=== PATIENT | female | born 1990 | race American Indian/Alaskan Native ===

== ENCOUNTER 2022-09-14 14:21 | Inpatient (IN) ==
[2022-09-14] MEDS ORDERED: OXYTOCIN 30 UNITS/500 ML BAG IV PRN ×2 (14:27→18:35)
[2022-09-14] MEDS ORDERED: LIDOCAINE 1% LOCAL 20 ML VIAL INFIL PRN (14:27)
--- NOTE | 2022-09-14 14:39 | History & Physical Report ---
Date of Service September 14, 2022 Assessment & Plan (1) Rupture of membranes with clear amniotic fluid: Plan: 32 y/o female presents from clinic after confirmed ROM. GBS neg, RI. Rh neg - given rhogam at 28 weeks. Expect normal vaginal delivery. Epidural if/when desired. Pit when indicated. Typical labor care. c/b hypothyroidism on levothyroxine 112 mcg Admission and Anticipated Discharge Date Admission Date: September 14, 2022 History of Present Illness Chief Complaint: ROM Primary Care Provider: Enedina Ignacio DO 32 y/o female at 37+6 presents from clinic after confirmed ROM. 1-2/50/-2 in office. GBS neg, RI. Rh neg - given rhogam at 28 weeks. Ob Hx - 1 spontaneous Chief [employer] Hx Last pap 12/23/21 NIL Had abnormal pap in 2019 - HPV SUNITA 1, Allergies Allergy/AdvReac Type Severity Reaction Status Date / Time human papillomavirus AdvReac fever and Verified 09/14/22 13:35 vaccine, 9-valent syncope [From Gardasil 9 (PF)] Home Medications Medication Instructions Recorded Confirmed Type prenat.vits,jeramy,[id number] 1 tab PO DAILY 12/23/21 09/14/22 History levothyroxine 112 mcg tablet 112 mcg PO DAILY 05/19/22 09/14/22 History breast pump #1 ea 09/08/22 09/14/22 Rx Patient History Medical History (Updated 09/14/22 @ 14:37 by Sandy Ward MD) Abnormal Pap smear of cervix Anxiety and depression Hypothyroidism LGSIL on Pap smear of cervix Oral contraceptive prescribed Varicella vaccination Surgical History History of tonsillectomy and adenoidectomy Family History Grandmother (Paternal) Metastatic cancer to brain Mother Healthy adult Father Tachy-tanna syndrome Diabetes Denies family history of Ovarian cancer Breast cancer Colorectal cancer Social History (Updated 02/20/22 @ 10:00 by Evy Matias) Smoking Status: Never smoker marital status: Single marital status details: srikanthsaba Bethel Timmons (30) [phone] Current Living Situation: Significant Other Current Living Situation Comment: lives with Fob, 2 step children, dog, cat-fob changing litter current occupational status: employed 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
[2022-09-14 14:55] LABS: Hematocrit (blood only) 37.6 % (37.0-47.0); Hemoglobin 12.8 g/dl (12.0-16.0); Mean Platelet Volume 10.9 fL (9.4-12.4); Platelet Count 271 K/uL (130-400); RDW Coefficient of Variation 12.9 % (11.5-14.5); RDW Standard Deviation 42.5 fL (36.4-46.3); Red Blood Count 4.13 M/uL (4.20-5.40); White Blood Count 10.36 K/ul (4.8-10.8)
[2022-09-14] MEDS: LACTATED RINGER'S 1,000 ML IV PRN ×2 (18:37→23:24)
[2022-09-14] MEDS ORDERED: ePHEDrine sulfate 50 MG/ML AMP ONE (23:10)
[2022-09-14] MEDS ORDERED: LIDOCAINE 2%/EPINEPHRINE 1:200,000 20 ML SDV ONE (23:10)
[2022-09-14] MEDS ORDERED: SODIUM CHLORIDE 0.9% INJ 10 ML VIAL ONE (23:10)
[2022-09-14] MEDS ORDERED: BUPIVACAINE 0.25% 30 ML VIAL ONE (23:10)
[2022-09-14] MEDS ORDERED: fentaNYL citrate 100 MCG/2 ML VIAL ONE (23:10)
[2022-09-14] MEDS ORDERED: fentaNYL 2MCG/ML ROPIVACAINE 1.25MG/ML 100 ML BAG EPI ONE (23:11)
--- NOTE | 2022-09-14 23:20 | Anesthesiology Consultation ---
Date of Service September 14, 2022 Assessment & Plan Chart Review Chart Review: Acceptable Risk for Labor Epidural Consults Requested none ASA ASA2 Proposed Anesthesia Anesthesia Type: Labor Epidural Risk / Benefits Reviewed With: PT / POA / Parent / Guardian, Accepts Plan and Informed Consent Obtained History Height/Weight Height: 5 ft 1 in Weight: 87.22 kg Allergies Allergy/AdvReac Type Severity Reaction Status Date / Time human papillomavirus AdvReac fever and Verified 09/14/22 13:35 vaccine, 9-valent syncope [From Gardasil 9 (PF)] Medications Home Medications Medication Instructions Recorded Confirmed Last Taken prenat.vits,jeramy,[id number] 1 tab PO DAILY 12/23/21 09/14/22 Unknown levothyroxine 112 mcg tablet 112 mcg PO DAILY 05/19/22 09/14/22 Unknown breast pump #1 ea 09/08/22 09/14/22 Unknown Active Medications Generic Name Dose Route Start Last Admin Trade Name Freq PRN Reason Stop Dose Admin Lactated Ringer's 1,000 mls @ 125 mls/hr 09/14/22 14:27 09/14/22 23:01 Lr IV 09/16/22 14:26 999 mls/hr .Q8H PRN Infusion L&D Protocol Protocol Oxytocin 30 units in 500 mls @ 9 mls/hr 09/14/22 18:35 09/14/22 23:01 Pitocin IV 09/16/22 18:34 0.54 units/hr .Q24H PRN 9 mls/hr Labor Induction/Augmentation Titration Protocol 0.54 UNITS/HR Past Medical History Medical History Abnormal Pap smear of cervix Anxiety and depression Hypothyroidism LGSIL on Pap smear of cervix Oral contraceptive prescribed Varicella vaccination Exercise / Class Metabolic Activity II 4-5 Yardwork/Stairs/Walk up hill Past Family History Family History Grandmother (Paternal) Metastatic cancer to brain Mother Healthy adult Father Tachy-tanna syndrome Diabetes Denies family history of Ovarian cancer Breast cancer Colorectal cancer Past Surgical History Surgical History History of tonsillectomy and adenoidectomy Past Anesthesia History No Hx of Anesthesia Complications and No Family Hx of Anesthesia Complications History of PONV No Hx of PONV and No Hx of Motion Sickness Social History Smoking Status: Never smoker Hx Alcohol Use: No Hx Substance Use: No Physical Exam Vital Signs Last Vital Signs Temp 98.4 F 09/14/22 23:01 Pulse 98 H 09/14/22 23:17 Resp 18 09/14/22 23:01 BP 121/56 L 09/14/22 23:00 Pulse Ox 97 09/14/22 23:17 ENMT Mouth: no dentition abnormality Thyromental Distance: > or= 3.5 Finger Breadths Mallampati Class: II Neck normal visual inspection Respiratory normal respiratory effort Auscultation: lungs clear to auscultation bilaterally Cardiovascular Rate/Rhythm: regular rate and regular rhythm Testing Laboratory Results 09/14/22 14:35 Blood Type A Negative 09/14/22 14:35 Antibody Screen POSITIVE A 09/14/22 14:35
[2022-09-14] MEDS ORDERED: NALOXONE HCL 0.4 MG/1 ML VIAL/CARP IV PRN (23:38)
[2022-09-14] MEDS ORDERED: ePHEDrine sulfate 50 MG/ML AMP IV PRN (23:38)
[2022-09-14] MEDS ORDERED: diphenhydrAMINE 50 MG/ML VIAL IV PRN (23:38)
[2022-09-14] MEDS ORDERED: ONDANSETRON INJ 2 MG/ML 2 ML VIAL IV PRN (23:38)
[2022-09-14] MEDS ORDERED: fentaNYL 2MCG/ML ROPIVACAINE 1.25MG/ML 100 ML BAG EPI PRN (23:38)
[2022-09-14] MEDS ORDERED: NALOXONE HCL 1 MG in SODIUM CHLORIDE 0.9% 1000ML 1,000 ML IV PRN (23:38)
[2022-09-14] MEDS ORDERED: NALBUPHINE HCL INJ 10 MG/ML AMP IV PRN (23:38)
[2022-09-15] MEDS ORDERED: Nursing to Pharmacy Communication SCH (01:30)
[2022-09-15] MEDS: LACTATED RINGER'S 1,000 ML IV PRN (02:12)
--- NOTE | 2022-09-15 02:38 | Delivery Summary ---
Vaginal Delivery Summary Date of Service September 15, 2022 Vaginal Delivery Summary Patient had been sent over from the office with spontaneous rupture of membrane she was 1 cm 50% she initially chose to walk and preferred not to have augmentation but after several hours there were minimal contractions so she excepted Pitocin this was run and she then requested epidural she reached fully dilated pushing a baby over occiput anterior position first delivery of the head mouth and then nares suctioned no nuchal cord fluid was clear gentle traction no excessive force baby was delivered without difficulty live vigorous male cord clamped and cut placenta removed with gentle traction IV Pitocin started uterine tone improved second-degree tear repaired with 3-0 Vicryl sponge and instrument counts correct estimated blood loss 300 mL
[2022-09-15] MEDS ORDERED: DIPHTHERIA/TETANUS/PERTUSSIS 0.5mL SYR/VIAL (Age 7+yrs) IM ONE (03:02)
[2022-09-15] MEDS ORDERED: oxyCODONE/ACETAMINOPHEN 5mg/325mg TAB PO PRN (03:02)
[2022-09-15] MEDS ORDERED: BENZOCAINE 20% AER SPR 82.5 GM CAN EXT PRN (03:02)
[2022-09-15] MEDS ORDERED: ACETAMINOPHEN 325 MG TAB PO PRN (03:02)
[2022-09-15] MEDS ORDERED: OXYTOCIN 30 UNITS/500 ML BAG IV PRN (03:02)
[2022-09-15] MEDS ORDERED: HYDROCORTISONE ACETATE 25 MG SUPP PR PRN (03:02)
[2022-09-15] MEDS: IBUPROFEN 600 MG TAB PO PRN ×3 (04:03→20:46)
[2022-09-15] MEDS: LEVOTHYROXINE SODIUM 112 MCG TABLET PO SCH (06:31)
[2022-09-15] MEDS: PRENATAL VITAMIN 1 TAB PO SCH (08:24)
[2022-09-15] MEDS: DOCUSATE SODIUM 100 MG CAP PO SCH ×2 (08:24→20:46)
--- NOTE | 2022-09-15 08:56 | Anesthesia Procedure Note ---
Date of Service September 15, 2022 Anesthesia Post Epidural Note Vital Signs Vital Signs: Temp Pulse Resp BP Pulse Ox O2 Del Method 36.8 C 85 18 101/62 97 Room Air 09/15/22 05:00 09/15/22 05:00 09/15/22 05:00 09/15/22 05:00 09/15/22 05:00 09/15/22 05:00 Pain Intensity Bilateral Abdomen: Pain Intensity: 2 Bilateral Episiotomy/Laceration: Pain Intensity: 2 Notes Mental Status: alert / awake / arousable and participated in evaluation Nausea / Vomiting: adequately controlled Pain: adequately controlled Airway Patency, RR, SpO2: stable & adequate BP & HR: stable & adequate Hydration State: stable & adequate Neuraxial Anesthesia: was administered and sensory block resolved Anesthetic Complications: no major complications apparent and Pt Satisfied with anesthetic care Epidural: Removed without complications and With tip intact
[2022-09-16] MEDS: LEVOTHYROXINE SODIUM 112 MCG TABLET PO SCH (06:23)
--- NOTE | 2022-09-16 07:41 | Obstetrical Progress Note ---
Date of Service September 16, 2022 Assessment & Plan (1) Encounter for care and examination after delivery: Day 1 status post . Patient doing well. Routine care. Subjective Ambulation: ambulating normally Voiding: no voiding problems Passing Gas:: Yes Diet Tolerance:: regular diet Lochia:: Moderate Feeding Type:: breast feeding Physical Exam Constitutional WD/WN, vitals as above Respiratory normal respiratory effort; no respiratory distress and no labored breathing Gastrointestinal (Abdomen) Inspection/Auscultation: abdomen normal to inspection; abdomen not distended Percussion/Palpation: abdomen soft; abdomen nontender, no guarding and abdomen not rigid Genitourinary OB Exam Abdomen: + fundal height Fundus: + firm and + relation to umbilicus (Below); not tender or not boggy Results & Data ([facility]) Vital Signs (Past 12 Hours) Vital Signs Temp Pulse Resp BP 09/15/22 20:40 37.0 C 103 H 18 111/70
[2022-09-16 07:50] LABS: Hemoglobin 10.7 g/dl (12.0-16.0); Mean Corpuscular Hemoglobin 30.7 pg (25.0-34.0); Mean Corpuscular Hgb Conc 33.4 g/dL (32.0-36.0); Platelet Count 217 K/uL (130-400); RDW Coefficient of Variation 13.2 % (11.5-14.5); RDW Standard Deviation 43.7 fL (36.4-46.3); Red Blood Count 3.48 M/uL (4.20-5.40); White Blood Count 10.93 K/ul (4.8-10.8)
[2022-09-16] MEDS: DOCUSATE SODIUM 100 MG CAP PO SCH (08:29)
[2022-09-16] MEDS: PRENATAL VITAMIN 1 TAB PO SCH (08:29)
[2022-09-16] MEDS: IBUPROFEN 600 MG TAB PO PRN (08:30)
--- NOTE | 2022-09-16 13:00 | Communication Note ---
Date of Service: September 16, 2022 called by nursing that pt wants to go home today. her baby was discharged. this is was new to me after signout--was told pt wanted to stay. communicated with nursing if pt had any questions or concerns to let me know. d/c papers organized and d/c order placed.
[2022-09-16] MEDS ORDERED: bisacodyL 5 MG TABEC PO SCH (20:00)
[2022-09-17] MEDS ORDERED: bisacodyL 10 MG SUPP PR PRN (03:02)
[2022-09-18] MEDS ORDERED: LEVOTHYROXINE SODIUM 112 MCG TABLET PO SCH (06:30)
== END 2022-09-16 15:10 | disposition home or self-care (01) | DRG 807 ==
LOC: 4S1 14:21 → 4E2 09-15 05:00